=== PATIENT | female | born 1990 | race Caucasian/White ===

== ENCOUNTER 2023-09-10 15:20 | Emergency (ER) | payer MEDICAID ==
[~2023-09-10] VITALS: Ht 162.6 cm; Wt 83.0 kg
[2023-09-10 15:40] VITALS: O2SAT 100
[2023-09-10 16:07] LABS: CLARITY URINE CLEAR (CLEAR); COLOR URINE YELLOW (YELLOW); GLUCOSE URINE NEGATIVE (NEGATIVE); KETONES URINE NEGATIVE (NEGATIVE); LEUKOCYTE ESTERASE URINE TRACE (NEGATIVE); NITRITE URINE NEGATIVE (NEGATIVE); OCCULT BLOOD URINE 1+ (NEGATIVE); PROTEIN URINE NEGATIVE (NEGATIVE); SPECIFIC GRAVITY URINE 1.026 (1.005-1.030); UROBILINOGEN URINE 0.2 E.U./dL (0.2-1.0)
[2023-09-10 16:21] LABS: BACTERIA URINE NONE SEEN; RBC URINE 0-2 /hpf (0-2); SQUAMOUS EPITHELIAL CELL URINE 1+ /lpf (RARE/1+); WBC URINE 0-2 /hpf (0-2)
[2023-09-10] MEDS ORDERED: METR-167 MT (19:31)
[2023-09-10 19:35] VITALS: BP 139/79; PULSE 68; RESP 18; TEMP 98.2
== END 2023-09-10 19:45 | disposition home or self-care (01) ==
LOC: ER 15:20
DX: N76.0 Acute vaginitis (principal)
CPT/HCPCS: 81003; 81025; 87210; 99284

== ENCOUNTER 2024-03-19 20:04 | Emergency (ER) | payer MEDICAID, OTHER ==
[~2024-03-19 20:04] MED LIST: METR-167 MT
[2024-03-20] MEDS ORDERED: SODIUM CHLORIDE 0.9% 1,000 ML IV ONE
[2024-03-20] MEDS ORDERED: METR-167 MT (00:26)
[2024-03-20 00:40] VITALS: RESP 17
== END 2024-03-20 00:49 | disposition home or self-care (01) ==
LOC: ER 20:04
DX: N89.8 Other specified noninflammatory disorders of vagina (principal)
CPT/HCPCS: 99283; 81025; 82962 ×2; J7030